=== PATIENT | female | born 1980 | race Caucasian/White ===

== ENCOUNTER → 2018-06-14 08:58 | Outpatient (CLI) | payer BC, SELFPAY ==
[2018-06-14 11:47] LABS: Urine N gonorrhoeae NOT DETECTED
[2018-06-14 12:03] LABS: Urine Chlamydia NOT DETECTED
== END ==
PROVIDERS: Family Provider Family Medicine; PCP Family Medicine; Visit Provider Physician Assistant
DX: R30.0 Dysuria (principal)
CPT/HCPCS: 87210; 87491; 87591

== ENCOUNTER → 2018-08-17 07:37 | Outpatient (CLI) | payer BC, SELFPAY ==
[2018-08-17 08:22] LABS: Appearance Urine UA CLEAR; Bilirubin Urine UA NEGATIVE (NEGATIVE); Color Urine UA YELLOW; Glucose Urine UA NEGATIVE (Negative); Ketones Urine UA NEGATIVE (NEGATIVE); Leukocyte Esterase Urine UA TRACE (NEGATIVE); Nitrite Urine UA NEGATIVE (Negative); Occult Blood Urine UA 2+ (Negative); Pregnancy Test Urine Negative (Negative); Protein Urine UA NEGATIVE (Negative); Specific Gravity Urine UA >=1.030 (1.000-1.035); Urobilinogen Urine UA 0.2 E.U./dL (0.2)
[2018-08-17 08:24] LABS: Add Manual Diff / Slide Review NO; Basophils Absolute Auto 0 /uL (0-100); Basophils Percent Auto 0.8 % (0-2); Eosinophils Absolute Auto 200 /uL (0-450); Eosinophils Percent Auto 3.5 % (2-4); Hematocrit 41.4 % (36-46); Hemoglobin 14.1 g/dL (12.0-16.0); Lymphocytes Absolute Auto 1600 /uL (1100-4500); Lymphocytes Percent Auto 27.7 % (25-40); Mean Corpuscular HGB Conc 34.2 % (30-36); Mean Corpuscular Hemoglobin 29.4 PG (26-34); Monocytes Absolute Auto 400 /uL (0-900); Monocytes Percent Auto 6.1 % (3-14); Neutrophils Absolute Auto 3600 /uL (1500-7000); Neutrophils Percent Auto 61.9 % (50-75); Platelet Count 229 X10^3/uL (150-400); Red Blood Cell Count 4.81 X10^6/uL (4.0-5.2); Red Cell Distribution Width 13.5 % (11.6-14.8); White Blood Cell Count 5.8 X10^3/uL (4.5-11.0)
[2018-08-17 08:43] LABS: Alanine Aminotransferase 21 IU/L (9-52); Albumin 4.1 g/dL (3.5-5.0); Albumin Globulin Ratio 1.3 (1.0-2.8); Alkaline Phosphatase 38 U/L (38-126); Amylase 56 U/L (30-110); Aspartate Aminotransferase 19 IU/L (14-36); BUN Creatinine Ratio 31.4 (6-22); Bilirubin Total 0.4 mg/dL (0.2-1.3); Blood Urea Nitrogen 22 mg/dL (7-17); Calcium 8.8 mg/dL (8.4-10.2); Carbon Dioxide 25 mmol/L (22-32); Chloride 105 mmol/L (98-107); Cholesterol 171 mg/dL (140-199); Estimated Glomerular Filt Rate > 60.0 mL/min (>60); Globulin 3.1 g/dL (1.7-4.1); Glucose 97 mg/dL (70-100); HDL Cholesterol 46 mg/dL (40-60); HEMOLYSIS < 15 (0-50); LDL Cholesterol Calculated 112 mg/dL (<100); Lipase 71 U/L (23-300); Potassium 4.2 mmol/L (3.4-5.1); Sodium 138 mmol/L (137-145); Total Protein 7.2 g/dL (6.3-8.2); Triglycerides 66 mg/dL (35-150); Uric Acid 3.4 mg/dL (2.5-6.2)
[2018-08-17 08:49] LABS: Bacteria Urine Few (2-10); Culture Indicated Urine Cult Not Indicated; RBC Urine 1-5/HPF (0-5/HPF); Squamous Epithelial Cell Urine 5-10 /HPF (0-5/HPF); WBC Urine 1-5/HPF (0-5/HPF)
[2018-08-17 09:41] LABS: Thyroid Stimulating Hormone 1.14 uIU/mL (0.47-4.68)
== END ==
PROVIDERS: PCP Family Medicine; Visit Provider Family Medicine
DX: K21.9 Gastro-esophageal reflux disease without esophagitis (principal); Z00.00 Encounter for general adult medical examination without abnormal findings; R10.33 Periumbilical pain; R51 Headache; F10.21 Alcohol dependence, in remission; Z51.81 Encounter for therapeutic drug level monitoring; Z13.220 Encounter for screening for lipoid disorders; Z13.29 Encounter for screening for other suspected endocrine disorder
CPT/HCPCS: 36415; 80053; 80061; 81003; 81015; 81025; 82150; 83690; 84443; 84550; 85025

== ENCOUNTER → 2019-02-21 10:35 | Outpatient (CLI) | payer BC, SELFPAY ==
[2019-02-21 13:30] LABS: Urine N gonorrhoeae NOT DETECTED
[2019-02-21 13:57] LABS: Urine Chlamydia NOT DETECTED
== END ==
PROVIDERS: PCP Family Medicine; Visit Provider Obstetrics & Gynecology
DX: Z34.81 Encounter for supervision of other normal pregnancy, first trimester (principal); Z3A.08 8 weeks gestation of pregnancy
CPT/HCPCS: 87491; 87591

== ENCOUNTER → 2019-02-21 10:50 | Outpatient (CLI) | payer BC, SELFPAY ==
[2019-02-21 11:58] LABS: Add Manual Diff / Slide Review NO; Basophils Absolute Auto 0 /uL (0-100); Basophils Percent Auto 0.4 % (0-2); Eosinophils Absolute Auto 100 /uL (0-450); Eosinophils Percent Auto 1.1 % (2-4); Hematocrit 38.9 % (36-46); Hemoglobin 13.3 g/dL (12.0-16.0); Lymphocytes Absolute Auto 1600 /uL (1100-4500); Lymphocytes Percent Auto 19.7 % (25-40); Mean Corpuscular HGB Conc 34.1 % (30-36); Mean Corpuscular Hemoglobin 28.9 PG (26-34); Monocytes Absolute Auto 400 /uL (0-900); Monocytes Percent Auto 4.7 % (3-14); Neutrophils Absolute Auto 5900 /uL (1500-7000); Neutrophils Percent Auto 74.1 % (50-75); Platelet Count 217 X10^3/uL (150-400); Red Blood Cell Count 4.58 X10^6/uL (4.0-5.2); Red Cell Distribution Width 13.2 % (11.6-14.8)
[2019-02-21 12:00] LABS: Appearance Urine UA CLEAR; Bilirubin Urine UA NEGATIVE (NEGATIVE); Color Urine UA YELLOW; Glucose Urine UA NEGATIVE (Negative); Ketones Urine UA NEGATIVE (NEGATIVE); Leukocyte Esterase Urine UA TRACE (NEGATIVE); Nitrite Urine UA NEGATIVE (Negative); Occult Blood Urine UA TRACE-INTACT (Negative); Protein Urine UA NEGATIVE (Negative); Urobilinogen Urine UA 0.2 E.U./dL (0.2); pH Urine UA 5.5 (4.5-8.0)
[2019-02-21 12:01] LABS: Bacteria Urine None Seen; WBC Urine None Seen (0-5/HPF)
[2019-02-21 12:47] LABS: RBC Urine 1-5/HPF (0-5/HPF); Squamous Epithelial Cell Urine 5-10 /HPF (0-5/HPF)
[2019-02-21 12:48] LABS: Culture Indicated Urine Cult Not Indicated; Transitional Epi Cells Urine 1-5/HPF (0-5/HPF)
[2019-02-21 16:12] LABS: Hepatitis B Surface Antigen NEGATIVE s/c (NEGATIVE); Rubella Antibody IgG 48.2 IU/mL (>15)
[2019-02-21 16:28] LABS: HIV 1 & 2 Ab/Ag 4th Gen Combo NEGATIVE (NEGATIVE); Hep C Virus Ab w/Reflex Quant NEGATIVE s/c (NEGATIVE)
[2019-02-23 22:48] LABS: RPR Screen Nonreactive (Nonreactive)
[2019-02-27 14:43] LABS: HSV 1 IgM Screen Positive (Negative); HSV 2 IgM Screen Negative (Negative)
== END ==
PROVIDERS: PCP Family Medicine; Visit Provider Obstetrics & Gynecology
DX: Z34.82 Encounter for supervision of other normal pregnancy, second trimester (principal); Z3A.08 8 weeks gestation of pregnancy
CPT/HCPCS: 36415; 80055; 81003; 81015; 86695; 86696; 86787; 86803; 86850; 86900; 86901; 87086; 87389; 87491; 87591

== ENCOUNTER → 2019-03-20 15:03 | Outpatient (CLI) | payer SELFPAY | PROVIDERS: PCP Family Medicine; Visit Provider Obstetrics & Gynecology | DX: O09.529 Supervision of elderly multigravida, unspecified trimester (principal); Z3A.12 12 weeks gestation of pregnancy | CPT/HCPCS: 36415; 81420 ==

== ENCOUNTER → 2019-06-27 08:12 | Outpatient (CLI) | payer OTHER, SELFPAY ==
[2019-06-27 09:56] LABS: Hematocrit 37.3 % (36-46); Hemoglobin 12.9 g/dL (12.0-16.0)
[2019-06-27 10:51] LABS: GTT (PREG) 1 Hour PP 50gm Dose 102 mg/dL (76-139)
== END ==
PROVIDERS: PCP Obstetrics & Gynecology; Referring Provider Obstetrics & Gynecology; Visit Provider Obstetrics & Gynecology
DX: Z34.92 Encounter for supervision of normal pregnancy, unspecified, second trimester (principal); Z3A.26 26 weeks gestation of pregnancy
CPT/HCPCS: 36415; 82950; 85014; 85018; 86850; 86870; 86886

== ENCOUNTER 2019-08-16 12:07 | Outpatient (CLI) | payer OTHER, SELFPAY | END 2019-08-16 12:30 | disposition home or self-care (01) | LOC: LABOR 12:24 → OB 08-17 08:19 | PROVIDERS: PCP Obstetrics & Gynecology; Referring Provider Obstetrics & Gynecology; Visit Provider Obstetrics & Gynecology | DX: O35.1XX0 Maternal care for (suspected) chromosomal abnormality in fetus, not applicable or unspecified (principal); O09.523 Supervision of elderly multigravida, third trimester; Z3A.33 33 weeks gestation of pregnancy | CPT/HCPCS: 59025; G0378; G0379 ==

== ENCOUNTER 2019-08-20 12:48 | Outpatient (CLI) | payer OTHER, SELFPAY | END 2019-08-20 13:10 | disposition home or self-care (01) | LOC: LABOR 12:51 → OB 08-21 15:19 | PROVIDERS: PCP Obstetrics & Gynecology; Referring Provider Obstetrics & Gynecology; Visit Provider Obstetrics & Gynecology | DX: O09.523 Supervision of elderly multigravida, third trimester (principal); Z3A.34 34 weeks gestation of pregnancy | CPT/HCPCS: 59025; G0378; G0379 ==

== ENCOUNTER 2019-08-23 11:37 | Outpatient (CLI) | payer OTHER, SELFPAY | END 2019-08-23 12:09 | disposition home or self-care (01) | LOC: LABOR 11:55 → OB 08-27 14:23 | PROVIDERS: PCP Obstetrics & Gynecology; Referring Provider Obstetrics & Gynecology; Visit Provider Obstetrics & Gynecology | DX: O35.1XX0 Maternal care for (suspected) chromosomal abnormality in fetus, not applicable or unspecified (principal); O09.523 Supervision of elderly multigravida, third trimester; Z3A.34 34 weeks gestation of pregnancy | CPT/HCPCS: 59025; G0378; G0379 ==

== ENCOUNTER → 2019-08-27 11:44 | Outpatient (CLI) | payer OTHER, SELFPAY ==
[2019-08-28 08:02] LABS: Strep Grp B PCR NEG for Grp B Strep
== END ==
PROVIDERS: PCP Obstetrics & Gynecology; Visit Provider Obstetrics & Gynecology
DX: Z34.83 Encounter for supervision of other normal pregnancy, third trimester (principal); Z3A.35 35 weeks gestation of pregnancy
CPT/HCPCS: 87653

== ENCOUNTER 2019-08-27 12:33 | Outpatient (CLI) | payer OTHER, SELFPAY | END 2019-08-27 13:00 | disposition home or self-care (01) | LOC: OB 08-28 09:13 | PROVIDERS: PCP Obstetrics & Gynecology; Referring Provider Obstetrics & Gynecology; Visit Provider Obstetrics & Gynecology | DX: O35.1XX0 Maternal care for (suspected) chromosomal abnormality in fetus, not applicable or unspecified (principal); O09.523 Supervision of elderly multigravida, third trimester; Z3A.35 35 weeks gestation of pregnancy | CPT/HCPCS: 59025; 87653; G0378; G0379 ==

== ENCOUNTER 2019-08-30 11:20 | Outpatient (CLI) | payer OTHER, SELFPAY | END 2019-08-30 11:50 | disposition home or self-care (01) | LOC: LABOR 11:39 → OB 09-03 09:33 | PROVIDERS: PCP Obstetrics & Gynecology; Referring Provider Obstetrics & Gynecology; Visit Provider Obstetrics & Gynecology | DX: O35.1XX0 Maternal care for (suspected) chromosomal abnormality in fetus, not applicable or unspecified (principal); O09.523 Supervision of elderly multigravida, third trimester; Z3A.35 35 weeks gestation of pregnancy | CPT/HCPCS: 59025; G0378; G0379 ==

== ENCOUNTER 2019-09-03 12:27 | Outpatient (CLI) | payer OTHER, SELFPAY ==
--- NOTE | 2019-09-03 12:54 | P.TNLD_ITS ---
Visit Information Visit Information Date of evaluation: 09/03/19 Primary OB Provider: Candy Herrera On-call OB Provider: Kayla Andrews Reason for Evaluation: Yes non-stress test non-stress test reason: other (Down syndrome) [facility] Medical History (Updated 09/03/19 @ 12:56 by Kayla Andrews MD) Abnormal Pap smear of cervix (Resolved) Chicken pox (Resolved) Chlamydia (Chronic ~2008) Endometriosis (Chronic ~2008) Headache (Chronic) Herpes genitalia (Acute) Irregular menstrual cycle (Chronic ~2015) PID (pelvic inflammatory disease) (Chronic) Restless leg syndrome (Chronic) Substance abuse (Chronic ~2014) Surgical History (Updated 02/21/19 @ 09:05 by Emi Stokes RN) Anesthesia (Inactive) History of broken leg (Resolved) History of esophagogastroduodenoscopy (EGD) (Acute) Family History (Updated 02/21/19 @ 10:42 by Candy Herrera MD) Mother Accident Grandmother Cancer Father Cancer Sister Addiction Other Brain cancer Social History marital status: unmarried,living together number of children: 3 household members: significant other and children pets and animals: Yes (Cats and aware) education level: college occupational status: employed current occupational exposures/hazards: No special nguyen needs: No travel history: over 6 months ago other: Works hard Smoking Status: Former smoker Evaluation Evaluation Baseline heart rate: 120 Variability: Moderate (11-25) monitor accelerations: Present monitor decelerations: Absent Contraction Frequency (minutes): 0 Category of Tracing: I Diagnosis, Plan/Disposition Final Diagnosis (1) Down syndrome of fetus in current : Current Visit: Yes Status: Acute Plan/Disposition Plan: Reactive nonstress tests continue weekly testing and visits OB Disposition: home
== END 2019-09-03 13:04 | disposition home or self-care (01) ==
LOC: OB 09-04 13:36
PROVIDERS: PCP Obstetrics & Gynecology; Referring Provider Obstetrics & Gynecology; Visit Provider Obstetrics & Gynecology
DX: O35.1XX0 Maternal care for (suspected) chromosomal abnormality in fetus, not applicable or unspecified (principal); O09.523 Supervision of elderly multigravida, third trimester; Z3A.36 36 weeks gestation of pregnancy
CPT/HCPCS: 59025; G0378; G0379

== ENCOUNTER 2019-09-06 10:39 | Outpatient (CLI) | payer OTHER, SELFPAY | END 2019-09-06 11:08 | disposition home or self-care (01) | LOC: OB 09-08 09:24 | PROVIDERS: PCP Obstetrics & Gynecology; Referring Provider Obstetrics & Gynecology; Visit Provider Obstetrics & Gynecology | DX: O35.1XX0 Maternal care for (suspected) chromosomal abnormality in fetus, not applicable or unspecified (principal); Z3A.36 36 weeks gestation of pregnancy | CPT/HCPCS: 59025; G0378; G0379 ==

== ENCOUNTER 2019-09-13 09:43 | Outpatient (CLI) | payer OTHER, SELFPAY | END 2019-09-13 10:28 | disposition home or self-care (01) | LOC: LABOR 10:17 → OB 09-14 11:57 | PROVIDERS: PCP Obstetrics & Gynecology; Referring Provider Obstetrics & Gynecology; Visit Provider Obstetrics & Gynecology | DX: O36.8130 Decreased fetal movements, third trimester, not applicable or unspecified (principal); O35.1XX0 Maternal care for (suspected) chromosomal abnormality in fetus, not applicable or unspecified; Z3A.38 38 weeks gestation of pregnancy | CPT/HCPCS: 59025; G0378; G0379 ==

== ENCOUNTER 2019-09-17 12:05 | Inpatient (IN) | payer BC, SELFPAY ==
--- NOTE | 2019-09-17 14:41 | P.HPOB_ITS ---
OB HPI Date/Time Date of admission: 09/17/19 Date Patient Seen: 09/17/19 Time Patient Seen: 12:30 History of Present Condition Chief complaint: NST : 4 Para: 3 Estimated Date of Delivery: 09/28/19 Narrative: Jayashree Chatterjee is a 39 year old @38+3 with a complicated by trisomy 21, presenting with minimal movement since this morning and in early labor. She denies LOF, VB, or frequent contractions, but reports that movement has decreased slightly over the past 1-2 weeks and is decreased dramatically today. The patient has been followed jointly with [facility], and has had normal heart imaging and is cleared to delivery at . She had a growth US at her appointment with [facility] on 09/09, and was found to have an EFW of 5#14, 14%, and significant percentile decrease. She had normal UA dopplers and otherwise normal testing at that time, and per MFM, was to be induced at 39 weeks or with any change in status. Her has been otherwise uncomplicated, with three prior term NSVDs, proven to 6#12, though her youngest child is 12. She has a history of genital HSV for which she was prescribed va ltrex at 36 weeks, and has a distant history of abnormal pap smears with normal since. She has a distant history of PID and substance abuse. History of Present care: good care Dating criteria: based on 1st trimester US only Ultrasounds: normal 1st trimester US and normal mid trimester US Obstetrical complications: other (trisomy 21) Preadmission Labs Blood type: A (-) negative -: Antibody screen: negative, GBS status: negative, HBsAG: negative, HIV: negative and RPR/VDLR: negative -: Rubella: immune and Varicella: immune PAP: Normal Cell-free DNA: trisomy 21, confirmed by amniocentesis with MFM 1 hr GTT: 102 Prior (ies) History: G1: 06/2000, T, , 6#15,, M G2: 11/2004, T, , 6#13, F G3: 06/2007, T, , 6#4, F Evaluation Evaluation Baseline heart rate: 120 Variability: Average (6-10) monitor accelerations: Present monitor decelerations: Absent Uterine Contraction Intensity: Mild Category of Tracing: I Cervical dilation (cm): 3 Cervical effacement (%): 80 station: -2 [facility] Medical History Abnormal Pap smear of cervix (Resolved) Chicken pox (Resolved) Chlamydia (Chronic ~2008) Endometriosis (Chronic ~2008) Headache (Chronic) Herpes genitalia (Acute) Irregular menstrual cycle (Chronic ~2015) PID (pelvic inflammatory disease) (Chronic) Restless leg syndrome (Chronic) Substance abuse (Chronic ~2014) Surgical History Anesthesia (Inactive) History of broken leg (Resolved) History of esophagogastroduodenoscopy (EGD) (Acute) Family History Mother Accident Grandmother Cancer Father Cancer Sister Addiction Other Brain cancer Social History marital status: unmarried,living together number of children: 3 household members: significant other and children pets and animals: Yes (Cats and aware) education level: college occupational status: employed current occupational exposures/hazards: No special nguyen needs: No travel history: over 6 months ago other: Works hard Smoking Status: Former smoker Meds Home Medications and Allergies Home Medications Medication Instructions Recorded Confirmed Type prenat.vits,ricky,yvj-wknt-rgmzf 1 tab PO DAILY 02/21/19 09/17/19 History omeprazole 40 mg capsule,delayed 40 mg PO DAILY #90 cap 04/24/19 09/17/19 Rx release Double Electric breast Pump and #1 each 08/22/19 Rx Supplies valacyclovir 500 mg tablet 500 mg PO DAILY #60 tab 08/27/19 09/17/19 Rx Allergies Allergy/AdvReac Type Severity Reaction Status Date / Time No Known Drug Allergies Allergy Verified 05/11/19 12:01 Review of Systems Constitutional Constitutional: Reports system reviewed and no additional complaints, except as documented Cardiovascular Cardiovascular: Reports system reviewed; no additional complaints, except as documented Respiratory Respiratory: Reports system reviewed and no additional complaints, except as documented Gastrointestinal Gastrointestinal: Reports system reviewed and no additional complaints, except as documented Genitourinary Genitourinary: Reports system reviewed and no additional complaints, except as documented Neurologic Neurologic: Reports system reviewed and no additional complaints, except as documented Endocrine Endocrine: Reports system reviewed and no additional complaints, except as documented Exam Const General: cooperative, healthy appearing and comfortable Resp Effort & Inspection: normal respiratory effort Auscultation: clear to auscultation bilaterally Cardio Rate: regular rate Rhythm: regular rhythm GI Palpation: soft and No tender External Female Exam: external appearance normal and no lesions Estimated Weight (lbs): 6 Other: No signs HSV outbreak Skin General: no rashes or lesions noted Objective Labs Result Diagrams: 09/17/19 15:07 Assessment and Plan Assessment and Plan Assessment and Plan narrative: This patient presents with decreased movement, and has been found to be in early labor with imminent SROM. Given her trisomy 21 and increased risk of stillbirth along with her gestational age, patient will be augmented with AROM and possibly pitocin if her labor does not progress. - CBC, T&S - epidural when desired - cEFM, toco - Dr. Kaye to be notified, planning to attend delivery - patient encouraged to ambulate
[2019-09-17 15:13] LABS: Add Manual Diff / Slide Review NO; Basophils Absolute Auto 100 /uL (0-100); Basophils Percent Auto 0.8 % (0-2); Eosinophils Absolute Auto 100 /uL (0-450); Eosinophils Percent Auto 0.8 % (2-4); Hematocrit 39.4 % (36-46); Hemoglobin 13.7 g/dL (12.0-16.0); Lymphocytes Absolute Auto 1600 /uL (1100-4500); Mean Corpuscular HGB Conc 34.7 % (30-36); Mean Corpuscular Hemoglobin 29.3 PG (26-34); Mean Corpuscular Volume 84.5 fL (80-100); Monocytes Absolute Auto 600 /uL (0-900); Monocytes Percent Auto 4.7 % (3-14); Neutrophils Absolute Auto 9900 /uL (1500-7000); Neutrophils Percent Auto 80.7 % (50-75); Platelet Count 160 X10^3/uL (150-400); Red Blood Cell Count 4.66 X10^6/uL (4.0-5.2); Red Cell Distribution Width 13.9 % (11.6-14.8); White Blood Cell Count 12.2 X10^3/uL (4.5-11.0)
[2019-09-17] MEDS: LACTATED RINGERS 1,000 ML 100 ML IV ×2 (16:15→19:35)
[2019-09-17 16:23] VITALS: BP 115/60
--- NOTE | 2019-09-17 18:42 | PM.OBPNLAB ---
Date/Time Date Patient Seen: 09/17/19 Time Patient Seen: 18:20 Pain Control Pain control: epidural Pelvic Exam Dilation (cm): 7 Effacement (%): 100 station: 0 Amniotic membrane status: Ruptured (SROM, clear) Contractions Contractions on admission: regular Contraction frequency (min): 4 Contraction pattern: Regular Contraction intensity: Strong/Firm Status status: Category l Heart Rate Baseline: 120 Monitor Accelerations: Present Monitor Decelerations: Absent Monitor Variability: Moderate Assessment and Plan Assessment: active labor Plan: continuous present management
--- NOTE | 2019-09-17 20:05 | P.PCNOB_ITS ---
Labor & Delivery Delivery date: 09/17/19 Intrapartal events: Acceleration and Deceleration Cervical ripening method: none Induction method: none Delivery monitor: external FHT and external uterine Route of delivery: L&D Laceration Description: None Estimated blood loss (mL): 100 Anesthesia type: Epidural Narrative: This patient is a 39yo now P4 who presented in early labor. She progressed to fully dilated unaugmented and was delivered of a healthy baby girl after a short 2nd stage, without complication. The shoulders delivered with ease, and there was no nuchal cord. Cord clamping was delayed for 45 seconds. There was no perineal laceration, and the placenta delivered intact and spontaneously shortly thereafter. Apgars were 9+9, and weight was 6#11. Dr. Kaye was present at the delivery due to Trisomy 21, but baby did well in the immediate period and was skin to skin with mom from immediately after delivery. [place] Baby 1: Infant gender: Female Presentation: vertex position: Left Occiput Transverse (LESLEY) Placenta delivery description: Spontaneous cord vessel description: 3 Vessels Plan for aftercare: Routine care. 30mU pitocin in 500ml LR administered over 3 hours .
[2019-09-17] MEDS: IBUPROFEN 600 MG TABLET PO (22:04)
[2019-09-18] MEDS: IBUPROFEN 600 MG TABLET PO ×3 (04:02→15:58)
--- NOTE | 2019-09-18 10:38 | PM.OBPN.1 ---
Subjective - OB Subjective Patient comments: no complaints, pain well controlled, tolerating diet and flatus present baby status: doing well [place] feeding status: exclusively breast feeding Narrative: This patient is a 39yo now P4 PPD#1 s/p after presenting in labor at term. The patient underwent an uncomplicated with no perineal laceration or complications, and is meeting all goals with mild lochia. The patient is highly interested in discharge. Date Patient Seen: 09/18/19 Time Patient Seen: 10:39 Exam Vital Signs (past 8 hours): 107/65, HR 80, T 98.2F Const General: cooperative, healthy appearing and comfortable Resp Effort & Inspection: normal respiratory effort Auscultation: clear to auscultation bilaterally Cardio Rate: regular rate Rhythm: regular rhythm GI Palpation: soft and No tender Other: fundus firm, well below u Extrem General: normal to inspection Objective Labs Result Diagrams: 09/17/19 15:07 Labs: Laboratory Results - last 24 hr 09/17/19 09/17/19 09/18/19 15:07 15:07 05:50 WBC 12.2 H RBC 4.66 Hgb 13.7 Hct 39.4 MCV 84.5 MCH 29.3 MCHC 34.7 RDW 13.9 Plt Count 160 Neut % (Auto) 80.7 H Lymph % (Auto) 13.0 L [place] % (Auto) 4.7 Eos % (Auto) 0.8 L Baso % (Auto) 0.8 Neut # (Auto) 9900 H Lymph # (Auto) 1600 [place] # (Auto) 600 Eos # (Auto) 100 Baso # (Auto) 100 Blood Type A Negative Antibody Screen Positive Antibody Identification Anti-D Maternal Bleed Negative Assessment & Plan Assessment and Plan (1) Vaginal delivery: Status: Acute Assessment and plan: This patient is a P4 PPD#1 s/p , recovering well and stable for an interested in discharge. We discussed precautions and instructions, and the patient will return to clinic in 4-6 weeks. Current Visit: Yes Plan day: 1 plan OB: routine care and discharge home Time Spent With Patient Time: Total time spent is greater than 50% in coordination of care (as documented) at patient's floor/unit and/or counseling patient: Time with patient: 15-24 minutes
--- NOTE | 2019-09-18 10:43 | P.DS_ITS ---
Discharge Providers Provider Date of admission: 09/17/19 12:05 Discharge Date: 09/18/19 Primary care physician: Candy Herrera MD Consults: 09/18/19 20:09 Consult to Steward/Stewardess Chief Cargo Vessel Routine Comment: Discharge provider: Candy Herrera MD Summary Hospital Course Date Patient Seen: 09/18/19 Time Patient Seen: 08:50 Procedures: Hospital Course: This patient presented in labor at 38 weeks with a complicated by a fetus with down syndrome. She progressed spontaneously and was delivered of a healthy baby girl without complication. Her recovery was uneventful, and she was discharged home on PPD#1 with routine precautions and follow up. Peripartum Data Infant Delivery Method: Natural Vaginal Laceration description: None complications: none [place] 1: Gender: Female Disposition of : home Discharge Diagnosis (1) Vaginal delivery: Status: Acute Status at Discharge Cognitive/behavioral status at discharge: oriented Functional status at discharge: independent ambulation Overall status at discharge: patient is progressing back to baseline Time Spent with Patient Time attestation: Total time spent providing and/or coordinating discharge services: Time spent: Less than 30 minutes Objective Labs Result Diagrams: 09/17/19 15:07 Labs: Laboratory Results - last 24 hr 09/17/19 09/17/19 09/18/19 15:07 15:07 05:50 WBC 12.2 H RBC 4.66 Hgb 13.7 Hct 39.4 MCV 84.5 MCH 29.3 MCHC 34.7 RDW 13.9 Plt Count 160 Neut % (Auto) 80.7 H Lymph % (Auto) 13.0 L [place] % (Auto) 4.7 Eos % (Auto) 0.8 L Baso % (Auto) 0.8 Neut # (Auto) 9900 H Lymph # (Auto) 1600 [place] # (Auto) 600 Eos # (Auto) 100 Baso # (Auto) 100 Blood Type A Negative Antibody Screen Positive Antibody Identification Anti-D Maternal Bleed Negative Exam Vital Signs (past 8 hours): see day of discharge progress note. Discharge Plan Discharge Plan Patient Disposition: Home Discharge orders & Medications Prescriptions: Continued omeprazole 40 mg capsule,delayed release(DR/EC) 40 mg PO DAILY Qty: 90 RF: 2 Hold Instructions: Need to see if she can go off high-dose (DME) Double Electric breast Pump and Supplies See Rx Instructions .ROUTE .MEDSUPPLY Qty: 1 RF: 0 valacyclovir 500 mg tablet 500 mg PO DAILY Qty: 60 RF: 1 prenat.vits,ricky,kln-cpxr-mfgwd Tablet 1 tab PO DAILY RF: 0 Follow up/Referrals: Candy Herrera MD [Primary Care Provider] - 1 Month (October 14- Tuesday at 2pm with Dr Herrera) Diet/Activity/Treatments Diet: Regular Activity: Nothing in the vagina for 6 weeks. Avoid lifting more than 10 pounds for 6 weeks. If you have increasing bleeding, fevers, chills, nausea, vomiting, headaches, or any other symptoms or concerns, call the clinic number or come to the emergency room. Skin/Wound/Dressing Care Report to your healthcare provider any signs of infection, such as:: chills, fever, night sweats and increased pain Visit Report/Discharge Packet Instructions: DI for Labor and Delivery, Vaginal Stand Alone Forms: Discharge: Care Discharge Data Primary Care Provider: Candy Herrera Discharges patient from system. Discharge Date/Time: 09/18/19 15:59
[2019-09-18] MEDS: ACETAMINOPHEN 325 MG TABLET 650 MG PO ×2 (10:56→15:58)
[2019-09-18] MEDS: PANTOPRAZOLE 40 MG TABLET PO (11:49)
[2019-09-18 12:42] VITALS: BP 128/65; PULSE 80; RESP 17; TEMP 36.8
[2019-09-18] MEDS: RHO(D) IMMUNE GLOBULIN 1,500 UNIT SYRINGE 1500 UNIT IM (12:51)
== END 2019-09-18 15:59 | disposition home or self-care (01) | DRG 806 ==
PROVIDERS: Admitting Provider Obstetrics & Gynecology; PCP Obstetrics & Gynecology; Referring Provider Obstetrics & Gynecology; Visit Provider Obstetrics & Gynecology
DX: O60.23X0 Term delivery with preterm labor, third trimester, not applicable or unspecified (principal); O98.32 Other infections with a predominantly sexual mode of transmission complicating childbirth; Z37.0 Single live birth; B00.9 Herpesviral infection, unspecified; Z3A.38 38 weeks gestation of pregnancy
CPT/HCPCS: 01967; 36415; 59050; 59400; 85025; 85461; 86850; 86870; 86900; 86901; G0379; J2790

== ENCOUNTER → 2020-07-30 07:10 | Outpatient (CLI) | payer BC, SELFPAY ==
[2020-07-30 07:35] LABS: COVID19 -Nasal RAPID Negative (Negative)
== END ==
PROVIDERS: Visit Provider Physician Assistant
DX: J02.9 Acute pharyngitis, unspecified (principal); R51.9 Headache, unspecified
CPT/HCPCS: 87635

== ENCOUNTER → 2022-03-24 09:56 | Outpatient (CLI) | payer BC, SELFPAY ==
[2022-03-24 11:16] LABS: Influenza A - CEPHEID Flu A POSITIVE (NEGATIVE); Influenza B - CEPHEID Flu B NEGATIVE (NEGATIVE); Respiratory Syncytial Virus Negative (Negative)
[2022-03-24 11:25] LABS: COVID-19 CEPHEID 4-PLEX PCR Negative (Negative)
== END ==
PROVIDERS: Visit Provider Nurse Practitioner Family
DX: R05.9 Cough, unspecified (principal); J02.9 Acute pharyngitis, unspecified; Z20.822 Contact with and (suspected) exposure to COVID-19
CPT/HCPCS: 0241U; 87070

== ENCOUNTER → 2024-05-23 12:43 | Outpatient (CLI) | payer BC, SELFPAY ==
--- NOTE | 2024-05-23 12:45 | DI.MG.S_ITS ---
BILATERAL DIGITAL SCREENING MAMMOGRAM 3D/2D WITH CAD: 05/23/2024 CLINICAL: Routine screening. Baseline exam. No prior exams were available for comparison. The breasts are heterogeneously dense, which may obscure small masses (category c / 51-75% glandular tissue). Current study was also evaluated with a Computer Aided Detection (CAD) system. No significant masses, calcifications, or other findings are seen in either breast. IMPRESSION: NEGATIVE There is no mammographic evidence of malignancy. A 1 year screening mammogram is recommended. Based on the Tyrer Cuzick model (a risk assessment model) the patient's lifetime risk is 9.7% and her 10 year risk is 1.5%. According to the ACR, ACS, and NCCN guidelines, an annual breast MRI exam along with mammogram is recommended if the patient's lifetime risk is 20% or greater. This exam was interpreted at Station ID: [id number]. NOTE: For mammograms, a report in lay terms will be sent to the patient. Approximately 15% of breast malignancies will not be visualized mammographically. In the management of a palpable breast mass, a negative mammogram must not discourage biopsy of a clinically suspicious lesion. Electronically Signed By: Brandyn silvestre/margie:05/24/2024 07:54:19 letter sent: Normal Exam ACR BI-RADS Category 1: Negative
== END ==
LOC: MAMMO 12:44
PROVIDERS: PCP Family Medicine; Referring Provider Family Medicine; Visit Provider Family Medicine
DX: Z12.31 Encounter for screening mammogram for malignant neoplasm of breast (principal); R92.333 Mammographic heterogeneous density, bilateral breasts
CPT/HCPCS: 77063; 77067